=== PATIENT | male | born 1945 | race Caucasian/White ===

== ENCOUNTER 2024-03-27 11:57 | Emergency (ER) | payer OTHER, MEDICARE ==
[2024-03-27] MEDS: SODIUM CHLORIDE 0.9% 500 ML INFUS.BAG IV ONE ×2 (12:00→13:09)
[2024-03-27 12:10] VITALS: BP 113/81; PULSE 87; RESP 18; BMI 19.8
[2024-03-27] MEDS: ONDANSETRON 4 MG/2 ML VIAL IVPUSH ONE (12:15)
[2024-03-27] MEDS ORDERED: ONDANSETRON 4 MG/2 ML VIAL ONE (12:19)
[2024-03-27] MEDS ORDERED: FAMOTIDINE 20 MG/50 ML IVPB 20 MG/50 ML MG IVPB ONE (12:19)
[2024-03-27 12:23] LABS: HEMATOCRIT 48.4 % (35.4-49); HEMOGLOBIN 16.4 G/dL (11.7-16.9); MCH 31.8 pg (25.7-33.7); MCHC 33.8 g/dl (32.0-35.9); MEAN PLT VOLUME 7.6 fl (7.5-11.1); RBC 5.15 10^6/uL (4.00-5.60); RDW 13.2 % (11.9-15.9); WHITE BLOOD COUNT 8.7 10^3/uL (4.0-10.8)
[2024-03-27] MEDS: FAMOTIDINE 20 MG/50 ML IVPB 20 MG/50 ML MG IVPB ONE (12:28)
[2024-03-27 12:46] LABS: PLATELET ESTIMATE ADEQUATE
[2024-03-27 12:51] LABS: ALBUMIN 4.4 g/dl (3.4-5.0); CALCIUM 9.6 mg/dl (8.5-10.1); CREATININE 1.1 mg/dl (0.6-1.3); POTASSIUM 4.1 mmol/L (3.5-5.1); TOT PROT 7.3 g/dl (6.4-8.2)
[2024-03-27 14:11] VITALS: TEMP 98.2
== END 2024-03-27 14:32 | disposition home or self-care (01) ==
LOC: FER 11:57
PROC: 3E1B78Z Irrigation of Ear using Irrigating Substance, Via Natural or Artificial Opening (ICD-10-PCS; principal; 2024-03-27)
PROC: 3E1B78Z Irrigation of Ear using Irrigating Substance, Via Natural or Artificial Opening (ICD-10-PCS; 2024-03-27)
DX: R11.2 Nausea with vomiting, unspecified (principal); R19.7 Diarrhea, unspecified; B34.9 Viral infection, unspecified
CPT/HCPCS: 36415; 80053; 83690; 83735; 85027; 99284-25